=== PATIENT | female | born 1965 | race Caucasian/White ===

== ENCOUNTER → 2019-05-20 | Outpatient (CLI) | payer MEDICARE, SELFPAY | DX: Z12.31 Encounter for screening mammogram for malignant neoplasm of breast (principal) | CPT/HCPCS: 77067 ==

== ENCOUNTER 2019-07-07 07:59 | Outpatient (CLI) | payer MEDICARE, SELFPAY ==
--- NOTE | 2019-07-07 08:07 | MM_ITS ---
WS: [id number] RIGHT DIGITAL MAMMOGRAPHY WITH CAD CLINICAL INFORMATION: ABNORMAL MAMMOGRAM TECHNIQUE: 3 views of the right breast were obtained. FINDINGS: Scattered fibroglandular densities of the right breast. Again seen are the punctate clustered calcifi cations inner right breast. Spot magnification views demonstrate clusters of calcifications increase d since 2014. 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 Recommend 6 eusebio h follow-up right diagnostic mammogram and spot notification views. IMPRESSION: MM/[place] [id number] BI-RADS: 3-Probably Benign FOLLOW UP: 6 Month Follow-up
== END 2019-07-07 08:00 | disposition home or self-care (01) ==
LOC: RADSHAW 08:03
PROVIDERS: PCP Nurse Practitioner Family; Visit Provider Nurse Practitioner Family
DX: R92.8 Other abnormal and inconclusive findings on diagnostic imaging of breast (principal)
CPT/HCPCS: 77065

== ENCOUNTER 2020-02-23 09:53 | Outpatient (CLI) | payer MEDICARE, SELFPAY ==
--- NOTE | 2020-02-23 09:58 | MM_ITS ---
WS: [id number] Right breast diagnostic digital mammogram, 02/23/2020 Clinical Data: 6 MO F/U RT CALCIFICATIONS Comparison: 07/07/2019, 05/20/2019, 07/29/2013, 10/09/2011, 09/27/2011, 08/06/2000. Findings: The punctate clustered calcifications in the central portion of the right breast have not changed in number or configuration. Most likely these represent benign calcifications, probably a degenerating f ibroadenoma. MM/[place] [id number] Impression: 1. Benign calcification central right breast. 2. Return to annual screening mammograms. BIRADS: 2-Benign FOLLOW UP: 1 Year Follow-up The CAD cash checker was used.
== END 2020-02-23 09:54 | disposition home or self-care (01) ==
PROVIDERS: PCP Nurse Practitioner Family; Visit Provider Nurse Practitioner Family
DX: R92.1 Mammographic calcification found on diagnostic imaging of breast (principal)
CPT/HCPCS: 77065

== ENCOUNTER 2020-03-12 11:07 | Outpatient (CLI) | payer MEDICARE, SELFPAY ==
--- NOTE | 2020-03-12 11:15 | USCV_ITS ---
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 The following venous structures were evaluated: common femoral vein, profunda vein, proximal portion of the greater saphenous vein, superficial femoral vein, and the popliteal vein. In addition, the posterior tibial and peroneal trunk were evaluated. Serial compression, augmentation maneuvers, and spectral Doppler flow evaluation were performed. Also the Rt. LSV and Rt. Pop fossa were examined. Also the Rt post calf was examined. FINDINGS: No DVT seen in any vessel examined CONCLUSIONS No evidence of right lower extremity DVT. No evidence of left lower extremity DVT. CALLED NEG PRELIM TO RAMA AT [facility] AT 11:50 AM. Napoleon Baker MD (Electronically Signed) Final Date: 12 March 2020 16:29 S
== END 2020-03-12 11:08 | disposition home or self-care (01) ==
LOC: RAD 11:13
PROVIDERS: PCP Nurse Practitioner Family; Visit Provider Nurse Practitioner Family
DX: M79.661 Pain in right lower leg (principal); M79.89 Other specified soft tissue disorders
CPT/HCPCS: 93970

== ENCOUNTER 2021-02-25 09:49 | Outpatient (CLI) | payer MEDICARE, SELFPAY ==
--- NOTE | 2021-02-25 10:00 | MM_ITS ---
WS: [id number] BILATERAL SCREENING DIGITAL MAMMOGRAM WITH CAD HISTORY: Z12.39 - Encounter for other screening for malignant neoplasm. COMPARISON: 02/23/2020 and 05/20/2019 Bilateral CC and MLO views submitted. Computer aided detection analyzed. Breast composition: There are scattered areas of fibroglandular density. No suspicious masses, microc alcifications or architectural distortion. Benign calcifications in the central RIGHT breast. MM/[place] [id number] IMPRESSION: BI-RADS: 2-Benign FOLLOW UP: 1 Year Follow-up
== END 2021-02-25 09:50 | disposition home or self-care (01) ==
PROVIDERS: PCP Nurse Practitioner Family; Visit Provider Nurse Practitioner Women's Health
DX: Z12.31 Encounter for screening mammogram for malignant neoplasm of breast (principal)
CPT/HCPCS: 77067

== ENCOUNTER 2021-09-19 10:47 | Observation (INO) | payer MEDICARE, SELFPAY ==
[2021-09-19] VITALS (9 sets, daily range): BP systolic 121–153; BP diastolic 73–96; PULSE 53–99; RESP 15–18; TEMP 36.6–37.2; O2SAT 93–99; BMI 41.3; BMI 42.9
--- NOTE | 2021-09-19 10:59 | W.ED.ABDPA2 ---
HPI - Abdominal Pain General: Chief Complaint: Abdominal Pain Stated Complaint: ABD pain Time Seen by Provider: 09/19/21 10:59 History of Present Illness: Ms. Mejia is a 55-year-old lady with history of thyroid disorder, fibromyalgia, abnormal uterine bleeding who presents to the emergency department due to abdominal pain. Symptom onset was acute at approximately 6 days ago. She reports pain in the epigastric region that woke her up from sleep. Symptoms have persisted since that time though do wax and wane in intensity. She endorses burning gnawing epigastric pain associated with mild nausea and one episode of vomiting last night during an episode of severe pain. She denies associated changes in bowel movements or urination. Pain mildly migrates most recently to the right upper quadrant. Intensity of symptoms is moderate to severe. She has tried [id number] medications without significant relief. Does have a very remote history of similar type feeling when she was 17 and had an ulcer. No history of frequent GERD. No other specific changes in health, exacerbating, or alleviating factors identified. Onset (ago): day(s) Pain Consistency: constant Location: Epigastric and RUQ Severity: severe Quality: aching, sharp and burning Exacerbating factors: nothing Relieving factors: nothing Treatments prior to arrival: antacids and other Review of Systems General: Reports: 10 or more systems reviewed and unremarkable except in HPI and below PFSH ED PFSH: Medical History Abnormal uterine bleeding Fibromyalgia syndrome Hypothyroid Morbid obesity with BMI of 40.0-44.9, adult No pertinent past medical history Neg Hx: HTN, DM, DVT/PE PCP: Raquel Campo Surgical History Hx of arthroscopic knee surgery Left side Family History Grandmother Breast cancer Paternal great grandmother Family/Other Breast cancer Maternal great aunt Mother Hypertension Social History Smoking and tobacco status: current every day smoker cigarettes [ Other cigarette details: Started smoking at age 25; currently smoking 1/2 pack daily.] Alcohol intake: never Additional social history: Well balanced diet Physical Exam Const: COMMON NORMALS: alert GENERAL APPEARANCE: cooperative and well developed HENMT: COMMON NORMALS: normocephalic and atraumatic HEAD & SCALP: normocephalic and atraumatic Eye: COMMON NORMALS: conjunctivae normal CONJUNCTIVA: Yes conjunctivae normal SCLERA: sclerae normal Neck/C-Spine: COMMON NORMALS: supple GENERAL: Yes trachea midline Resp: COMMON NORMALS: clear to auscultation bilaterally EFFORT & INSPECTION: Yes able to speak in complete sentences AUSCULTATION: clear to auscultation bilaterally Cardio: COMMON NORMALS: regular rate and regular rhythm RATE: regular rate RHYTHM: regular rhythm GI: COMMON NORMALS: Soft to palpation PALPATION: Yes Soft to palpation, Yes Tenderness to palpation present (GI) (Epigastric, with some additional tenderness to percussion over the region), No Guarding due to palpation present (GI) and No Rigid due to palpation PERCUSSION: normal to percussion Extremity: GENERAL: Yes normal exam except as noted and No edema Neuro: COMMON NORMALS: moves all extremities SENSORIUM/ORIENTATION: Yes alert and No Orientation impaired Psych: COMMON NORMALS: mental status grossly normal and Normal thought process present THOUGHT PROCESS: Normal thought process present Course ED course: - Patient was seen and evaluated by me at bedside - Patient placed on cardiac monitors, IV access obtained - Initial evaluation notable for exam as above. EKG reviewed showing sinus rhythm with nonspecific ST segment abnormalities. No STEMI. - Labs and xrays personally interpreted by me -Symptom treatment ordered - Labs notable for mild leukocytosis, normal hemoglobin. Metabolic panel without acute derangement, no transaminitis or abnormality of liver enzymes. No urinary tract infection. - Given severity of symptoms and physical exam findings despite laboratory findings I do feel that imaging is necessary. Imaging notable for likely cholecystitis however due to filling defect in gallbladder neck there is recommendation for ultrasound. Ultrasound also consistent with cholecystitis - Upon serial reexamination after treatment the patient was mildly improved though she did require repeat doses of analgesia - Based on patient history, evaluation, and testing as interpreted the most likely cause of the patient's condition is acute cholecystitis - The results of ED evaluation were discussed with the patient including plan for admission due to requirement for level of care not available if discharged to prevent significant worsening/deterioration. - Admitting service was contacted and Dr Knight with the general surgery service agreed to admit the patient - Patient was admitted without further deterioration or significant events. Note: Click bubbles or prepopulated martinez in note writing are used for assistance with data collection and billing and are inherently more limited than narrative and other text portions of this note. Please use narrative for additional clinical history and defer to narrative/free test for any case of contradictory information. If information appears in only free text or click bubble it should be considered present or absent as reported. Please contact note property underwriter for clarifications of clinical information or contradictory information. MDM is a brief summary, contradictory or erroneous seeming information should be clarified and full note should be reviewed. Vital Signs: Vital signs: Vital Signs Temperature 97.9 F 09/20/21 16:52 Pulse Rate 81 09/20/21 16:52 Respiratory Rate 16 09/20/21 16:52 Blood Pressure 146/80 09/20/21 16:52 Pulse Oximetry 93 09/20/21 16:52 MDM - Abdominal Pain Medical Decision Making 55-year-old lady presenting with abdominal pain more in the epigastric region. Laboratory studies not significantly deranged. CT imaging notable for abnormal gallbladder. Ultrasound findings consistent with acute cholecystitis. Admitted to general surgery service for further management. Medical Records I reviewed the patient's medical records. Lab Data I reviewed the patient's lab results. : 09/20/21 02:44 09/20/21 02:44 Labs/Radiology: Radiology Impressions Abdomen/Pelvis CT 09/19/21 12:32 IMPRESSION: 1. Diffuse gallbladder wall thickening with enhancement and inflammatory stranding in the gallbladder fossa suspicious for acute cholecystitis. Recommend further evaluation with ultrasound. Suggestion of a masslike filling defect in the gallbladder neck measuring 4.0 cm may represent radiolucent gallstone. Gallbladder mass not excluded. 2. No intrahepatic biliary ductal dilatation. 3. Large benign cavernous hemangioma in the LEFT hepatic lobe measuring 6.2 x 4.4 cm increased in size compared to 2013 where it measured 4.4 x 3.2 CM. 4. Heterogeneously enhancing fibroid uterus. 5. Sigmoid diverticulosis. No evidence of acute diverticulitis. Notified Lalito Peterson MD at 09/19/2021 2:08 PM. Abdomen Ultrasound 09/19/21 13:59 IMPRESSION: Technically difficult examination 1. Hepatomegaly with diffuse fatty infiltration. 2. Cholelithiasis with marked diffuse gallbladder wall thickening and edema compatible with acute cholecystitis. No gallbladder mass. Dense gallbladder sludge and bile. 3. Largest gallstone measures 2.2 cm 4. Normal common bile duct. No intrahepatic biliary duct dilatation. 5. No hydronephrosis in RIGHT kidney. Laboratory Results WBC 10.5 10^3/uL (4.0-10.0) H 09/19/21 11:30 RBC 4.64 10^6/uL (4.1-5.3) 09/19/21 11:30 Hgb 14.4 g/dL (11.5-15.3) 09/19/21 11:30 Hct 44.2 % (37.0-47.0) 09/19/21 11:30 MCV 95.3 fl (81-99) 09/19/21 11:30 MCH 31.0 pg (28.0-34.0) 09/19/21 11:30 MCHC 32.6 g/dL (30.0-36.0) 09/19/21 11:30 RDW 13.7 % (12.1-15.1) 09/19/21 11:30 Plt Count 296 10^3/cmm (130-400) 09/19/21 11:30 MPV 9.9 fL (7.4-10.4) 09/19/21 11:30 Neut % (Auto) 73.0 % 09/19/21 11:30 Lymph % (Auto) 16.4 % 09/19/21 11:30 [place] % (Auto) 8.8 % 09/19/21 11:30 Eos % (Auto) 1.1 % 09/19/21 11:30 Baso % (Auto) 0.5 % 09/19/21 11:30 Neut # (Auto) 7.64 10^3/uL (1.8-7.7) 09/19/21 11:30 Lymph # (Auto) 1.7 10^3/uL (0.8-4.8) 09/19/21 11:30 [place] # (Auto) 0.9 10^3/uL (0.2-0.9) 09/19/21 11:30 Eos # (Auto) 0.1 10^3/uL (0.0-0.8) 09/19/21 11:30 Baso # (Auto) 0.1 10^3/uL (0.0-0.1) 09/19/21 11:30 Nucleated RBC % (auto) 0 % 09/19/21 11:30 Nucleated RBCs # 0.0 /100WBC 09/19/21 11:30 Sodium 138 mmol/L (136-145) 09/19/21 11:30 Potassium 3.9 mmol/L (3.5-5.1) 09/19/21 11:30 Chloride 101 mmol/L (98-107) 09/19/21 11:30 Carbon Dioxide 25 mmol/L (22-29) 09/19/21 11:30 Anion Gap 15.9 (5-19) 09/19/21 11:30 BUN 6 mg/dL (6-20) 09/19/21 11:30 Creatinine 0.6 mg/dL (0.5-0.9) 09/19/21 11:30 GFR Calculation 104.6 mL/min (90-130) 09/19/21 11:30 Glucose 98 mg/dL (65-115) 09/19/21 11:30 Calculated Osmolality 284 mOsm/kg (285-295) L 09/19/21 11:30 Lactate 0.8 mmol/L (0.5-2.2) 09/19/21 11:30 Calcium 8.8 mg/dL (8.5-10.5) 09/19/21 11:30 Total Bilirubin 0.4 mg/dL (0.15-1.2) 09/19/21 11:30 AST 9 U/L (0-32) 09/19/21 11:30 ALT 9 U/L (0-33) 09/19/21 11:30 Alkaline Phosphatase 95 IU/L (35-105) 09/19/21 11:30 Troponin T Baseline 6 ng/L (0-10) 09/19/21 11:30 Troponin T 120 Minute 6.00 ng/L (0-10) 09/19/21 13:10 Delta Troponin T 0 ABS# (0-10) 09/19/21 13:10 Total Protein 6.7 g/dL (6.6-8.7) 09/19/21 11:30 Albumin 4.0 g/dL (3.5-5.2) 09/19/21 11:30 Globulin 2.7 g/dL (1.3-4.6) 09/19/21 11:30 Lipase 18 U/L (13-60) 09/19/21 11:30 Urine Color Straw (Yellow) 09/19/21 14:48 Urine Appearance Clear (CLEAR) 09/19/21 14:48 Urine pH 5 (5-7) 09/19/21 14:48 Ur Specific [place] 1.005 (1.005-1.030) 09/19/21 14:48 Urine Protein Neg (Negative) 09/19/21 14:48 Urine Glucose (UA) Norm (Normal) 09/19/21 14:48 Urine Ketones Negative (Negative) 09/19/21 14:48 Urine Blood Neg (Negative) 09/19/21 14:48 Urine Nitrate Negative (Negative) 09/19/21 14:48 Urine Bilirubin Neg (Negative) 09/19/21 14:48 Urine Urobilinogen Norm mg/dL (Negative) 09/19/21 14:48 Ur Leukocyte Esterase Negative (Negative) 09/19/21 14:48 Discharge Plan Discharge Patient Disposition: Admitted As Inpatient Admit Provider: Ino Knight Clinical Impression: Cholecystitis Condition: Stable Discharge Diet: Low Fat Discharge Activity: Increase activity as tolerated Coding Level of Care Code ED Supervisor Network Control Operators for Chg Fwd Exam Comprehensive
--- NOTE | 2021-09-19 11:22 | ECG_ITS ---
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 Measurements Intervals [place] Rate: 83 P: -6 LA: 158 QRS: 23 QRSD: 96 T: 6 QT: 356 QTc: 421 Interpretive Statements SINUS RHYTHM INCOMPLETE RIGHT BUNDLE BRANCH BLOCK [90+ ms QRS DURATION, TERMINAL R IN V1/V2, 40+ ms S IN I/aVL/V4/V5/V6] No previous ECG available for comparison Electronically Signed On 09-19-2021 16:32:40 CDT by Nir Chris M.D. [id number]
[2021-09-19 11:41] LABS: Basophils # 0.1 10^3/uL (0.0-0.1); Basophils % 0.5 %; Eosinophils # 0.1 10^3/uL (0.0-0.8); Eosinophils % 1.1 %; Hematocrit 44.2 % (37.0-47.0); Hemoglobin 14.4 g/dL (11.5-15.3); Lymphocytes # 1.7 10^3/uL (0.8-4.8); Lymphocytes % 16.4 %; Mean Corpuscular HGB Conc 32.6 g/dL (30.0-36.0); Mean Corpuscular Volume 95.3 fl (81-99); Mean Platelet Volume 9.9 fL (7.4-10.4); Monocytes # 0.9 10^3/uL (0.2-0.9); Monocytes % 8.8 %; Neutrophils # 7.64 10^3/uL (1.8-7.7); Nucleated Red Blood Cells % 0 %; Platelet Count 296 10^3/cmm (130-400); Red Blood Count 4.64 10^6/uL (4.1-5.3); Red Cell Distribution Width 13.7 % (12.1-15.1); White Blood Count 10.5 10^3/uL (4.0-10.0)
[2021-09-19] MEDS: lidocaine 2% viscous 15 ML, aluminum-mag hydrox-simethicon 30 ML, sucralfate oral liq 1 GM PO (11:43)
[2021-09-19] MEDS: ondansetron 2 mg/ML SDV 2 mL 4 MG IVP (11:43)
[2021-09-19 12:10] LABS: Lactate (Lactic Acid level) 0.8 mmol/L (0.5-2.2)
[2021-09-19 12:11] LABS: Alanine Aminotransferase 9 U/L (0-33); Alkaline Phosphatase 95 IU/L (35-105); Anion Gap 15.9 (5-19); Aspartate Amino Transferase 9 U/L (0-32); Blood Urea Nitrogen 6 mg/dL (6-20); Calcium 8.8 mg/dL (8.5-10.5); Carbon Dioxide 25 mmol/L (22-29); Chloride 101 mmol/L (98-107); Globulin 2.7 g/dL (1.3-4.6); Glomerular Filtration Rate 104.6 mL/min (90-130); Glucose 98 mg/dL (65-115); Lipase 18 U/L (13-60); Osmolality Calculated 284 mOsm/kg (285-295); Potassium 3.9 mmol/L (3.5-5.1); Sodium 138 mmol/L (136-145); Total Bilirubin 0.4 mg/dL (0.15-1.2); Total Protein 6.7 g/dL (6.6-8.7); Troponin(5th) Baseline 6 ng/L (0-10)
--- NOTE | 2021-09-19 12:32 | CT_ITS ---
WS: [id number] CT ABDOMEN PELVIS TECHNIQUE: Contrast-enhanced CT of the abdomen and pelvis with coronal and sagittal reformatted image s. CLINICAL INFORMATION: epigastric and RUQ abd pain, n/v COMPARISON: CT 3 28,014 DLP: 1928.[address] scans at [facility] use at least one of these dose optimization techniques: automated e xposure control; mA and/or kV adjustment per patient size (includes targeted exams where dose is matc hed to clinical indication); or iterative reconstruction. FINDINGS: Diffuse fatty infiltration liver. Diffuse gallbladder wall thickening and enhancement with cholelithi asis. Diffuse inflammatory stranding and edema in the gallbladder fossa compatible with acute cholecy stitis. Suggestion of masslike filling defect in the gallbladder neck measuring 4.0 cm x 2.1 may repr esent radiolucent gallstone. Gallbladder mass not excluded. No intrahepatic biliary ductal dilatation . Normal visualized common bile duct at the head of the pancreas. Mild fatty atrophy of the pancreas. Normal portal vein and splenic vein. Normal spleen. Normal GE junction. Large benign cavernous uvaldo ioma measuring 6.2 x 4.4 cm was present in 2013 measuring 4.0 cm x 3.2 at that time. Adrenal glands a re normal. Normal renal parenchymal enhancement. No hydronephrosis. Small LEFT adrenal adenoma measuring 16 mm. Normal GE junction. Normal caliber abdominal aorta. Mild aortic calcification. Sigmoid diverticulosis. No evidence of acute diverticulitis. No evidence of hig h-grade small or large bowel obstruction. Bibasilar atelectasis. Celiac and SMA are patent. Tiny fat- containing umbilical hernia. Heterogeneous uterine enhancement with fibroid uterus. CT/CT abdomen pelvis w con* [id number] IMPRESSION: 1. Diffuse gallbladder wall thickening with enhancement and inflammatory stran ding in the gallbladder fossa suspicious for acute cholecystitis. Recommend fur ther evaluation with ultrasound. Suggestion of a masslike filling defect in the gallbladder neck measuring 4.0 cm may represent radiolucent gallstone. Gallbla dder mass not excluded. 2. No intrahepatic biliary ductal dilatation. 3. Large benign cavernous hemangioma in the LEFT hepatic lobe measuring 6.2 x 4.4 cm increased in size compared to 2014 where it measured 4.4 x 3.2 CM. 4. Heterogeneously enhancing fibroid uterus. 5. Sigmoid diverticulosis. No evidence of acute diverticulitis. Notified Lalito Peterson MD at 09/19/2021 2:08 PM.
[2021-09-19] MEDS: morphine 4 mg/mL SDV 1 mL IVP ×3 (12:42→19:58)
[2021-09-19] MEDS: sodium chloride 0.9% 1,000 ML 999 ML IV (12:42)
[2021-09-19] MEDS: iohexol 350 mg/mL 100 mL Btl IV (13:35)
--- NOTE | 2021-09-19 13:59 | US_ITS ---
WS: [id number] ULTRASOUND ABDOMEN LIMITED CLINICAL INFORMATION: gallbladder abnormal on CT COMPARISON: CT September 19, 2021 FINDINGS: Technically difficult exam Liver Size: Enlarged Craniocaudal length: 17.4 cm. Echogenicity: Coarse Surface nodularity: None. Mass (size and location): None. Bile ducts Intrahepatic ducts: Normal. Common bile duct diameter: 0.5 cm. Gallbladder Cholelithiasis with thickened gallbladder wall. Diffuse gallbladder wall edema. Gallstones: Present Gallbladder sludge: Present Gallbladder wall thickenin.3 mm Pericholecystic fluid: Present Pancreas Normal as visualized. Right kidney: Normal. Hydronephrosis: None. Size: 10.6 cm x 6.1 cm x 4.2 cm. Abdominal aorta and IVC Visualized portions are normal. Ascites: None. US/US abdomen limited [id number] IMPRESSION: Technically difficult examination 1. Hepatomegaly with diffuse fatty infiltration. 2. Cholelithiasis with marked diffuse gallbladder wall thickening and edema co mpatible with acute cholecystitis. No gallbladder mass. Dense gallbladder sludg e and bile. 3. Largest gallstone measures 2.2 cm 4. Normal common bile duct. No intrahepatic biliary duct dilatation. 5. No hydronephrosis in RIGHT kidney.
[2021-09-19 14:25] LABS: Troponin 5 2HR Delta 0 ABS# (0-10)
[2021-09-19 15:01] LABS: Add Urine Microscopic? NO; Charge for UA Resulting for Rev
[2021-09-19 15:14] LABS: Bilirubin Urine Neg (Negative); Blood Urine Neg (Negative); Glucose Urine UA Norm (Normal); Ketones Urine Negative (Negative); Leukocyte Esterase Urine Negative (Negative); Nitrate Urine Negative (Negative); Protein Urine Neg (Negative); Specific Gravity, Urine 1.005 (1.005-1.030); Urine Appearance Clear (CLEAR); Urine Color Straw (Yellow); Urobilinogen Urine Norm (Negative); pH Urine 5 (5-7)
[2021-09-19] MEDS: piperacillin-tazobactam 4.5 GM in sodium chloride 0.9% (plus) 50 ML IV (15:29)
[2021-09-19] MEDS: sodium chloride 0.9% 1,000 ML 125 ML IV ×2 (15:29→23:22)
--- NOTE | 2021-09-19 15:39 | P.HP_ITS ---
Providers/Chief Complaint Admitting Physician: Ino Knight MD Primary Care Provider: RADHA Thakur Chief Complaint: ABD pain History of Present Illness Ms. Nedra Mejia is a pleasant 55 year old female with history of morbid obesity weighing 265 pounds and a current BMI of 41.3, in addition to history of hypothyroidism, fibromyalgia, history of abnormal uterine bleeding and menopausal syndrome. Presents to the emergency department with worsening abdominal pain particularly in the upper abdomen that has been going on for the past 6 days or so, got worse and she describes it is more dull and nothing seems to make it better except the pain medications she received in the ER and has been referred to the back. Associated with nausea and vomiting but no fevers or chills. Patient reports that she did have history of gallbladder stones but nothing was done much about it in the past but generally speaking she does report history of fatty dyspepsia and she was told in the past based on clinical evaluation that she may have an ulcer and subsequently she came to the ER under this impression and it turned out after further work-up that showed leukocytosis and a CT scan of the abdomen and pelvis that did show; 1.? Diffuse gallbladder wall thickening with enhancement and inflammatory stranding in the gallbladder fossa suspicious for acute cholecystitis. Recommend further evaluation with ultrasound. Suggestion of a masslike filling defect in the gallbladder neck measuring 4.0 cm may represent radiolucent gallstone. Gallbladder mass not excluded. 2.? No intrahepatic biliary ductal dilatation. 3.? Large benign cavernous hemangioma in the LEFT hepatic lobe measuring 6.2 x 4.4 cm increased in size compared to 2014 where it measured 4.4 x 3.2 CM. 4.? Heterogeneously enhancing fibroid uterus. 5.? Sigmoid diverticulosis. No evidence of acute diverticulitis. An ultrasound of the liver and gallbladder was done and showed; 1.? Hepatomegaly with diffuse fatty infiltration. 2.? Cholelithiasis with marked diffuse gallbladder wall thickening and edema compatible with acute cholecystitis. No gallbladder mass. Dense gallbladder sludge and bile. 3.? Largest gallstone measures 2.2 cm 4.? Normal common bile duct. No intrahepatic biliary duct dilatation. 5.? No hydronephrosis in RIGHT kidney. General surgery was consulted for further evaluation and management. Patient was seen and evaluated in room #16 in the ER. Patient reports that she had left knee surgery and did not have any worsening bleeding or anesthesia complications except for postoperative nausea she is also current smoker about half pack a day for many years Review of Systems General: Reports: 10 or more systems reviewed and unremarkable except in HPI and below Medications/Allergies Home Medications Medication Instructions Recorded Confirmed Last Taken Type [id number]-pnxgoiwrvapze-spxiyfsl 250 2 tab PO Q6H PRN 06/06/19 09/19/21 Unknown History mg-250 mg-65 mg tablet (Excedrin Migraine) ibuprofen 200 mg capsule 600 mg PO Q6H PRN 06/06/19 09/19/21 Unknown History pregabalin 75 mg capsule (Lyrica) 75 mg PO BID@06/06/19 09/19/21 09/18/21 History venlafaxine 75 mg capsule,extended 75 mg PO BEDTIME@202910/21/19 09/19/21 09/18/21 History release 24 hr (Effexor XR) clobetasol 0.05 % topical ointment 1 applic TOPICAL BID 14 Days #45 g 09/12/21 09/19/21 Unknown Rx latanoprost 0.005 % eye drops 1 drp OPHTHALMIC (EYE) BEDTIME@202909/12/21 09/19/21 09/18/21 History amitriptyline 25 mg tablet 25 mg PO BEDTIME@202909/19/21 09/19/21 09/18/21 History estradiol 0.5 mg tablet 0.5 mg PO DAILY@82909/19/21 09/19/21 09/19/21 08:30 History estradiol 1 mg tablet 1 mg PO DAILY@82909/19/21 09/19/21 09/19/21 08:30 History hydrocodone 5 mg-acetaminophen 325 1 tab PO Q4H PRN 09/19/21 09/19/21 Unknown History mg tablet levothyroxine 112 mcg tablet See Rx Instructions .ROUTE .COMPLEX 09/19/21 09/19/21 09/18/21 History levothyroxine 125 mcg tablet See Rx Instructions .ROUTE .COMPLEX 09/19/21 09/19/21 09/19/21 History medroxyprogesterone 5 mg tablet 5 mg PO DAILY@82909/19/21 09/19/21 09/19/21 History Allergies Allergy/AdvReac Type Severity Reaction Status Date / Time topiramate [From Topamax] Allergy Mental Verified 09/19/21 16:46 status changes PFSH Acute PFSH: Medical History Abnormal uterine bleeding Fibromyalgia syndrome Hypothyroid Morbid obesity with BMI of 40.0-44.9, adult No pertinent past medical history Neg Hx: HTN, DM, DVT/PE PCP: Raquel Campo Surgical History Hx of arthroscopic knee surgery Left side Family History Grandmother Breast cancer Paternal great grandmother Family/Other Breast cancer Maternal great aunt Mother Hypertension Social History Smoking and tobacco status: current every day smoker cigarettes [ Other cigarette details: Started smoking at age 25; currently smoking 1/2 pack daily.] Alcohol intake: never Additional social history: Well balanced diet Vitals/I&O/Wt Last Vital Signs Temp 97.9 F 09/19/21 10:55 Pulse 83 09/19/21 13:04 Resp 17 09/19/21 14:14 BP 141/91 09/19/21 13:04 Pulse Ox 96 09/19/21 13:04 Weight last 48 hrs Weight 256 lb Physical Exam Const: COMMON NORMALS: no acute distress and patient oriented x3 GENERAL APPEARANCE: cooperative and other (Morbidly obese) ORIENTATION/CONSCIOUSNESS: Yes awake, Yes oriented to person, Yes oriented to place and Yes oriented to time HENMT: COMMON NORMALS: normocephalic HEAD & SCALP: normocephalic Eye: COMMON NORMALS: Equal, round and reactive pupils present and no scleral icterus PUPIL: Yes Equal, round and reactive pupils present Lymph: LYMPHATIC: no lymphadenopathy noted Chest: COMMONS NORMALS: normal inspection of the chest Resp: COMMON NORMALS: normal respiratory effort; negative for clear to auscultation bilaterally (Scattered rhonchi on the right hemithorax) AUSCULTATION: clear to auscultation bilaterally Cardio: COMMON NORMALS: S1 normal heart sound present and S2 normal heart so und present; negative for No murmurs present (Cardio) HEART SOUNDS: S1 normal heart sound present and S2 normal heart sound present GI: COMMON NORMALS: Soft to palpation; negative for No hepatosplenomegaly present INSPECTION: Yes normal to inspection PALPATION: Yes Soft to palpation, No Firmness to palpation present (GI), No Tenderness to palpation present (GI), No Guarding due to palpation present (GI), No Rigid due to palpation and No No hepatosplenomegaly present Neuro: COMMON NORMALS: patient oriented x3 SENSORIUM/ORIENTATION: Yes oriented to person, Yes oriented to place and Yes oriented to time Psych: COMMON NORMALS: mental status grossly normal Skin: COMMON NORMALS: no rashes or lesions noted GENERAL SKIN EXAM: no rashes or lesions noted Data : 09/20/21 02:44 09/20/21 02:44 A&P Assessment and plan (1) Acute cholecystitis due to biliary calculus: After thorough history physical examination and reviewing the chart and images with my personal interpretation I did discuss with the patient and her family the following options; 1-giving the fact that the patient has been complaining of abdominal pain over the 6 days, she did pass the safer window for intervention which is likely the first 48 to 72 hours from the index episode and now moving to the seventh day, will have a higher chance for biliary injury and conversion to open with gallbladder surgery. With particular consideration of the fatty liver component that can make her surgery potentially more challenging. 2-conservative measures in the form of broad-spectrum antimicrobial therapy with repeated physical examination appropriate hydration and future interval cholecystectomy in 6 weeks 3-I did also emphasized on the importance to consider a cholecystostomy tube giving the fact that the gallbladder has been distended and placement of a draining tube per IR can give the patient relief with the plan for interval cholecystectomy in 4 to 6 weeks Patient would like to think about her options and we will keep her in an observation status on IV antibiotics and IV fluid resuscitation with repeat labs in the morning. Patient can have clear liquid diet for now and will keep n.p.o. after midnight Status: Acute (2) Fatty liver: Education about the importance of low calorie and low-fat diet and if the patient agreed on the interval cholecystectomy we will plan to put her on a liquid protein diet for at least 10 days to downsize the volume of the liver Status: Chronic (3) Smoking greater than 10 pack years: Education about the importance of cessation of smoking Assurance and education All questions have been answered and all concerns have been addressed to patient's satisfaction. Status: Acute Attestations Medical Necessity Statement*: Observation status Time Spent in Patient Care: 16 - 35 minutes Coding Level of Care Code Acute Home Health Nurse Licensed Practical for [facility] Fwd Exam Comprehensive Diagnoses Acute cholecystitis due to biliary calculus K80.00 Fatty liver K76.0 Smoking greater than 10 pack years F17.210
[2021-09-19 17:43] LABS: Troponin 5 6HR Delta 0 ng/L (0-12)
[2021-09-19] MEDS: famotidine 20 mg/2 mL INJ IVP (19:57)
[2021-09-19] MEDS: piperacillin-tazobactam 3.375 GM in sodium chloride 0.9% (plus) 50 ML IV (23:22)
[2021-09-20] VITALS: BP 123/66; PULSE 105; RESP 16; TEMP 36.6; O2SAT 97
[2021-09-20] MEDS: ondansetron 2 mg/ML SDV 2 mL 4 MG IVP (03:09)
[2021-09-20 03:12] LABS: Basophils # 0.1 10^3/uL (0.0-0.1); Basophils % 0.7 %; Eosinophils # 0.1 10^3/uL (0.0-0.8); Eosinophils % 1.1 %; Hematocrit 40.1 % (37.0-47.0); Hemoglobin 12.9 g/dL (11.5-15.3); Lymphocytes # 1.4 10^3/uL (0.8-4.8); Lymphocytes % 16.6 %; Mean Corpuscular HGB Conc 32.2 g/dL (30.0-36.0); Mean Corpuscular Hemoglobin 31.3 pg (28.0-34.0); Mean Corpuscular Volume 97.3 fl (81-99); Mean Platelet Volume 10.2 fL (7.4-10.4); Monocytes # 0.8 10^3/uL (0.2-0.9); Monocytes % 9.7 %; Neutrophils # 5.82 10^3/uL (1.8-7.7); Neutrophils % 71.7 %; Nucleated Red Blood Cells % 0 %; Platelet Count 283 10^3/cmm (130-400); Red Blood Count 4.12 10^6/uL (4.1-5.3); Red Cell Distribution Width 13.8 % (12.1-15.1); White Blood Count 8.1 10^3/uL (4.0-10.0)
[2021-09-20] MEDS: acetaminophen 325 mg Tablet 650 MG PO ×2 (03:23→12:10)
--- NOTE | 2021-09-20 03:28 | PC.NURSE ---
Patient has been complaining of a headache since receiving the morphine. This nurse asked the patient if she needed anything for it and I could call the doctor. The patient did not feel as though she needed something enough to wake the doctor for. Patient continued to complain of a headache increasing more. Patient stated when the weather gets like this, stormy and rainy, I tend to get headaches like this. This nurse educated the patient that rebound headaches is a side effect of morphine. This nurse asked the patient if she would like to try some ice on her head and neck to alleviate the pain. After having ice applied for about a hour, patient still felt no relief and stated her headache was pretty severe at this point and was beginning to make her nauseated. Zofran was administered and Dr. Knight was called. Tylenol was ordered and administered.
[2021-09-20 03:32] LABS: INR 1.08 (0.8-1.2); Partial Thromboplastin Time 35.5 SECONDS (23.9-36.7)
[2021-09-20 03:38] LABS: Alanine Aminotransferase 30 U/L (0-33); Albumin Level 3.1 g/dL (3.5-5.2); Alkaline Phosphatase 140 IU/L (35-105); Anion Gap 15.7 (5-19); Aspartate Amino Transferase 28 U/L (0-32); Blood Urea Nitrogen 6 mg/dL (6-20); Calcium 8.2 mg/dL (8.5-10.5); Carbon Dioxide 22 mmol/L (22-29); Chloride 104 mmol/L (98-107); Globulin 3.4 g/dL (1.3-4.6); Glomerular Filtration Rate 104.6 mL/min (90-130); Glucose 94 mg/dL (65-115); Osmolality Calculated 283 mOsm/kg (285-295); Potassium 3.7 mmol/L (3.5-5.1); Sodium 138 mmol/L (136-145); Total Bilirubin 0.6 mg/dL (0.15-1.2); Total Protein 6.5 g/dL (6.6-8.7)
[2021-09-20 04:00] VITALS: BP 118/79; PULSE 77; RESP 18; TEMP 36.6; O2SAT 91
[2021-09-20] MEDS: piperacillin-tazobactam 3.375 GM in sodium chloride 0.9% (plus) 50 ML IV ×2 (06:30→14:13)
[2021-09-20] MEDS: HYDROcodone-acetaminophen 5-325 mg Tablet 1 TAB PO (06:33)
[2021-09-20] MEDS: sodium chloride 0.9% 1,000 ML 125 ML IV (07:05)
[2021-09-20] MEDS: heparin 5,000 unit/mL INJ 1 mL 5000 UNIT SUBCUT (07:05)
[2021-09-20 07:20] VITALS: BP 122/72; PULSE 80; RESP 17; TEMP 36.9; O2SAT 92
--- NOTE | 2021-09-20 08:30 | PC.NURSE ---
Dr. Knight called about restarting home medications. Was told that he will look at her medications after he is out of a procedure.
[2021-09-20] MEDS: famotidine 20 mg/2 mL INJ IVP (08:32)
--- NOTE | 2021-09-20 10:12 | PM.SDS ---
Short Stay Summary Providers Date of Admit/Discharge: 09/20/21 Attending Provider: Ino Knight MD Primary Care Provider: RADHA Thakur Chief Complaint: ABD pain HPI History of Present Illness Ms. Nedra Mejia is a pleasant 55 year old female with history of morbid obesity weighing 265 pounds and a current BMI of 41.3, in addition to history of hypothyroidism, fibromyalgia, history of abnormal uterine bleeding and menopausal syndrome.? Presents to the emergency department with worsening abdominal pain particularly in the upper abdomen that has been going on for the past 6 days or so, got worse and she describes it is more dull and nothing seems to make it better except the pain medications she received in the ER and has been referred to the back.? Associated with nausea and vomiting but no fevers or chills.? Patient reports that she did have history of gallbladder stones but nothing was done much about it in the past but generally speaking she does report history of fatty dyspepsia and she was told in the past based on clinical evaluation that she may have an ulcer and subsequently she came to the ER under this impression and it turned out after further work-up that showed leukocytosis and a CT scan of the abdomen and pelvis that did show; 1.? Diffuse gallbladder wall thickening with enhancement and inflammatory stranding in the gallbladder fossa suspicious for acute cholecystitis. Recommend further evaluation with ultrasound. Suggestion of a masslike filling defect in the gallbladder neck measuring 4.0 cm may represent radiolucent gallstone. Gallbladder mass not excluded. 2.? No intrahepatic biliary ductal dilatation. 3.? Large benign cavernous hemangioma in the LEFT hepatic lobe measuring 6.2 x 4.4 cm increased in size compared to 2014 where it measured 4.4 x 3.2 CM. 4.? Heterogeneously enhancing fibroid uterus. 5.? Sigmoid diverticulosis. No evidence of acute diverticulitis. An ultrasound of the liver and gallbladder was done and showed; 1.? Hepatomegaly with diffuse fatty infiltration. 2.? Cholelithiasis with marked diffuse gallbladder wall thickening and edema compatible with acute cholecystitis. No gallbladder mass. Dense gallbladder sludge and bile. 3.? Largest gallstone measures 2.2 cm 4.? Normal common bile duct. No intrahepatic biliary duct dilatation. 5.? No hydronephrosis in RIGHT kidney. General surgery was consulted for further evaluation and management.? Patient was seen and evaluated in room #16 in the ER. Patient reports that she had left knee surgery and did not have any worsening bleeding or anesthesia complications except for postoperative nausea she is also current smoker about half pack a day for many years. Review of Systems General: Reports: 10 or more systems reviewed and unremarkable except in HPI and below Home Meds/Allergies Home Medications and Allergies Home Medications Medication Instructions Recorded Confirmed Type [id number]-rvptfbzsdevae-ndtqsnzv 250 2 tab PO Q6H PRN 06/06/19 09/19/21 History mg-250 mg-65 mg tablet (Excedrin Migraine) ibuprofen 200 mg capsule 600 mg PO Q6H PRN 06/06/19 09/19/21 History pregabalin 75 mg capsule (Lyrica) 75 mg PO BID@06/06/19 09/19/21 History venlafaxine 75 mg capsule,extended 75 mg PO BEDTIME@202910/21/19 09/19/21 History release 24 hr (Effexor XR) latanoprost 0.005 % eye drops 1 drp OPHTHALMIC (EYE) BEDTIME@202909/12/21 09/19/21 History amitriptyline 25 mg tablet 25 mg PO BEDTIME@202909/19/21 09/19/21 History estradiol 0.5 mg tablet 0.5 mg PO DAILY@82909/19/21 09/19/21 History estradiol 1 mg tablet 1 mg PO DAILY@82909/19/21 09/19/21 History hydrocodone 5 mg-acetaminophen 325 1 tab PO Q4H PRN 09/19/21 09/19/21 History mg tablet levothyroxine 112 mcg tablet See Rx Instructions .ROUTE .COMPLEX 09/19/21 09/19/21 History levothyroxine 125 mcg tablet See Rx Instructions .ROUTE .COMPLEX 09/19/21 09/19/21 History medroxyprogesterone 5 mg tablet 5 mg PO DAILY@82909/19/21 09/19/21 History Allergies Allergy/AdvReac Type Severity Reaction Status Date / Time topiramate [From Topamax] Allergy Mental Verified 09/19/21 16:46 status changes PFSH Acute PFSH: Medical History Abnormal uterine bleeding Fibromyalgia syndrome Hypothyroid Morbid obesity with BMI of 40.0-44.9, adult No pertinent past medical history Neg Hx: HTN, DM, DVT/PE PCP: Raquel Campo Surgical History Hx of arthroscopic knee surgery Left side Family History Grandmother Breast cancer Paternal great grandmother Family/Other Breast cancer Maternal great aunt Mother Hypertension Social History Smoking and tobacco status: current every day smoker cigarettes [ Other cigarette details: Started smoking at age 25; currently smoking 1/2 pack daily.] Alcohol intake: never Additional social history: Well balanced diet Vitals/I&O/Wt Last Vital Signs Temp 98.5 F 09/20/21 07:20 Pulse 80 09/20/21 07:20 Resp 17 09/20/21 07:20 BP 122/72 09/20/21 07:20 Pulse Ox 92 09/20/21 07:20 09/19/21 09/20/21 09/20/21 22:59 06:59 14:59 Intake Total 1050 / 1050 1515.417 / 2565.417 964.583 / 964.583 Output Total 1450 / 1450 Balance 1050 / 1050 65.417 / 1115.417 964.583 / 964.583 Weight last 48 hrs Weight 265 lb 12.8 oz Weight 256 lb Physical Exam Narrative: Patient is conscious alert oriented X3 No apparent distress BMI 43 Head and neck examination PERRLA no masses no cervical lymphadenopathy no jaundice Abdomen nontender nondistended soft no organomegaly guarding or rigidity/no signs of peritonitis Morbidly obese Hospital Course Hospital Course This is a pleasant 55 years old female patient with history of morbid obesity developed acute onset of abdominal pain particularly in the epigastrium and slightly towards the right upper quadrant and was diagnosed with acute calculus cholecystitis yet in the interim she does have a increase in the left lobe hemangioma that could be contributing factor of her epigastric pain as well. Patient was admitted on my service for observation and seems to be responding well to antimicrobial therapy yet she did have increase in the alk phos. surgery option was discussed with the patient he had given the fact that the patient has been having symptoms for the past 6 days the surgical intervention was guarded due to the higher potential risk of biliary injury and conversion to open. Patient denies any fevers chills nausea or vomiting and has been tolerating p.o. intake and an adequate urine output. Patient was given different options of management and she did not show interest in the cholecystostomy tube and subsequently the patient elected to go with parenteral antimicrobial therapy and showed much interest to go home today on oral antibiotics as she does not want to spend at least 1 more night in the hospital. No evidence of leukocytosis or fevers or tachycardia. He had slight elevation of alk phos and this knowledge has been shared with the patient and the daughter to be aware of the trending of the LFTs. SSS Data Data Completed and Pending: Completed Studies During Hospitalization Category Date Time Status CT abdomen pelvis w con* [id number] Urge nt Cat Scan 09/19/21 12:32 Completed US abdomen limite d [id number] Stat Ultrasound 09/19/21 13:59 Completed Diagnoses at Discharge Discharge Diagnosis (1) Acute cholecystitis due to biliary calculus: Details from hospital stay: Plan to discharge patient oral antimicrobial therapy(per patient's request as she is not interested to stay in the hospital) for 10 days and follow-up with me in the office in 2 weeks and proceed with interval cholecystectomy in 4 to 6 weeks. 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 Image guided. Also emphasis on weight reduction and cessation of smoking and particularly education regarding the growing left hepatic lobe hemangioma that would require potential hepatobiliary consultation down the road. Avoid any rough contact to avoid potential bleeding from the hemangioma. Specific education was given about the importance to refrain from unhealthy and greasy diet Status: Acute (2) Fatty liver: Details from hospital stay: Low-fat and low calorie diet Emphasis on weight reduction Status: Chronic (3) Smoking greater than 10 pack years: Details from hospital stay: Education about the importance for cessation of smoking Status: Acute (4) Liver hemangioma: Details from hospital stay: Patient likely would benefit from hepatobiliary surgery evaluation to see if there is a potential need for embolization of the hemangioma as it is getting bigger. Status: Chronic Discharge Plan Discharge Patient Disposition: Home Condition: Stable Prescriptions: New Protonix 40 mg tablet,delayed release (DR/EC) 40 mg PO DAILY 30 Days Qty: 30 3RF Augmentin XR 1,000-62.5 mg tablet extended release 12 hr 1 tab PO Q12H 10 Days Qty: 20 0RF Continued venlafaxine [Effexor XR] 75 mg capsule,extended release 24hr 75 mg PO BEDTIME@2029 0RF latanoprost 0.005 % drops 1 drp ophthalmic (eye) BEDTIME@2029 0RF clobetasol 0.05 % ointment 1 applic topical BID 14 Days Qty: 45 1RF Rx Instructions: Apply to affected area no more than 2 weeks per month. not for face or skin folds pregabalin [Lyrica] 75 mg capsule 75 mg PO BID@ 0RF Excedrin Migraine 250-250-65 mg tablet 2 tab PO Q6H PRN (Reason: Migraine Headache) 0RF ibuprofen 200 mg capsule 600 mg PO Q6H PRN (Reason: Pain) 0RF hydrocodone-acetaminophen 5-325 mg tablet 1 tab PO Q4H PRN (Reason: Pain) 0RF amitriptyline 25 mg tablet 25 mg PO BEDTIME@2029 0RF levothyroxine 125 mcg tablet See Rx Instructions .ROUTE .COMPLEX 0RF Rx Instructions: 125mcg po daily on sunday through sunday @07:00 levothyroxine 112 mcg tablet See Rx Instructions .ROUTE .COMPLEX 0RF Rx Instructions: 112mcg po daily on sun and sun medroxyprogesterone 5 mg tablet 5 mg PO DAILY@829 0RF Rx Instructions: take in conjunction with estradiol estradiol 1 mg tablet 1 mg PO DAILY@829 0RF Rx Instructions: take with estradiol 0.5mg to total 1.5mg daily; take in conjunction with provera estradiol 0.5 mg tablet 0.5 mg PO DAILY@829 0RF Rx Instructions: take with estradiol 1mg to total 1.5mg daily; take in conjunction with provera Discharge Orders: Discharge Order (Routine); Ordered 09/20/21 Ordered By: Ino Knight Referrals: Raquel Campo FNP [Primary Care Provider] - 09/27/21 4:00 pm Ino Knight MD [Physician] - 09/29/21 1:00 pm Discharge Diet: Low Fat Discharge Activity: Increase activity as tolerated Patient Instructions: Amoxicillin/Clavulanate Potassium (By mouth), Pantoprazole (By mouth), Cholecystitis (ED), Low Fat Diet (DC), Opioid Safety Attestations Medical Necessity Statement*: Observation status conservative measures for acute calculus cholecystitis Time Spent in Patient Care*: greater than 30 min Quality Metrics Clinical Quality Measures: [ No reported AMI, CVA or VTE this stay] Coding Level of Care Code Acute Plc Controls Engineer for g Fwd Diagnoses Acute cholecystitis due to biliary calculus K80.00 Fatty liver K76.0 Smoking greater than 10 pack years F17.210 Liver hemangioma D18.03
[2021-09-20 12:00] VITALS: BP 135/79; PULSE 80; RESP 17; TEMP 36.4; O2SAT 96
[2021-09-20 15:27] VITALS: BP 146/80; PULSE 81; RESP 16; TEMP 36.6; O2SAT 93
--- NOTE | 2021-09-20 16:48 | PC.NURSE ---
patient verbalized understanding of discharge instructions, home medications, low fat diet and follow up appointments. Afternoon dose of iv antibiotics completed prior to discharge.
[2021-09-20 16:52] VITALS: BP 146/80; PULSE 81; RESP 16; TEMP 36.6; O2SAT 93
== END 2021-09-20 16:52 | disposition home or self-care (01) ==
LOC: ER 11:10 → MEDSURG 15:33
PROVIDERS: Admitting Provider Surgery; Emergency Provider Emergency Medicine; PCP Nurse Practitioner Family; Visit Provider Surgery
DX: K80.00 Calculus of gallbladder with acute cholecystitis without obstruction (principal); K76.0 Fatty (change of) liver, not elsewhere classified; F17.210 Nicotine dependence, cigarettes, uncomplicated; D18.03 Hemangioma of intra-abdominal structures; E66.01 Morbid (severe) obesity due to excess calories; Z68.41 Body mass index [BMI] 40.0-44.9, adult; Z79.82 Long term (current) use of aspirin; M79.7 Fibromyalgia; Z82.49 Family history of ischemic heart disease and other diseases of the circulatory system
CPT/HCPCS: 36415; 74177; 76705; 80053; 81003; 83605; 83690; 84484; 85025; 85610; 85730; 93005; 96361; 96365; 96372; 96375; 96376; 99285; G0378; J1644; J2270; J2405; J2543; J3490; J7030; Q9967

== ENCOUNTER 2022-02-27 14:11 | Outpatient (CLI) | payer MEDICARE, SELFPAY ==
--- NOTE | 2022-02-27 14:30 | XR_ITS ---
WS: [id number] SCREENING DEXA SCAN [facility] CLINICAL INFORMATION: POSTMENOPAUSAL COMPARISON: None. FINDINGS: The L1-L4 bone mineral density measures 1.262 g/cm2. This corresponds to a T score score of 0.7 and Z score of 0.3. Left femoral neck bone mineral density measures 1.079 g/cm2. This corresponds to a T score of 0.6 and Z score of 0.3. Right femoral neck bone mineral density measures 1.204 g/cm2. This corresponds to a T score 1.6of and Z score of 1.3. Mean femoral neck bone mineral density measures 1.141 g/cm2. This corresponds to a T score of 1.1 and Z score of 0.8. XR/XR DEXA axial skeleton* [id number] IMPRESSION: Normal bone mineralization. Patient's FRAX calculated 10 year probability for major osteoporotic fracture i s 7.9 % and osteoporotic hip fracture is 0.2%.
--- NOTE | 2022-02-27 14:30 | MM_ITS ---
WS: [id number] BILATERAL 3D TOMOSYNTHESIS DIGITAL SCREENING MAMMOGRAPHY WITH CAD CLINICAL INFORMATION: SCREENING HISTORY: Screening mammogram. LEFT breast pain and soreness COMPARISON: February 25, 2021 TECHNIQUE: Bilateral CC and MLO views. FINDINGS: Scattered fibroglandular densities bilaterally. No suspicious focal mass, asymmetry, calcifications, or architectural distortion. No evidence of malignancy. Stable clustered calcifications RIGHT breast. MM/[place] [id number] IMPRESSION: BI-RADS: 2-Benign FOLLOW UP: 1 Year Follow-up Recommend return to annual screening mammography.
== END 2022-02-27 14:12 | disposition home or self-care (01) ==
LOC: RAD 14:12
PROVIDERS: PCP Nurse Practitioner Family; Visit Provider Nurse Practitioner Family
DX: Z12.31 Encounter for screening mammogram for malignant neoplasm of breast (principal); Z78.0 Asymptomatic menopausal state
CPT/HCPCS: 77063; 77067; 77080

== ENCOUNTER → 2022-03-03 11:28 | Outpatient (BNVA) | payer MEDICARE, SELFPAY | PROVIDERS: PCP Nurse Practitioner Family; Visit Provider Nurse Practitioner Women's Health | DX: Z01.419 Encounter for gynecological examination (general) (routine) without abnormal findings (principal); N95.1 Menopausal and female climacteric states; D68.51 Activated protein C resistance | CPT/HCPCS: 87624 ==

== ENCOUNTER 2022-04-10 08:02 | Oncology outpatient (recurring) (ONCR) | payer MEDICARE, SELFPAY | END 2022-04-19 23:59 | disposition home or self-care (01) | LOC: ONCMED 08:03 | PROVIDERS: PCP Nurse Practitioner Family; Visit Provider Internal Medicine Medical Oncology | DX: D68.51 Activated protein C resistance (principal); Z86.718 Personal history of other venous thrombosis and embolism; Z79.899 Other long term (current) drug therapy; F17.210 Nicotine dependence, cigarettes, uncomplicated | CPT/HCPCS: 99204 ==

== ENCOUNTER 2023-03-09 11:41 | Outpatient (CLI) | payer MEDICARE, SELFPAY ==
--- NOTE | 2023-03-09 11:48 | MM_ITS ---
WS: [id number] BILATERAL 3D TOMOSYNTHESIS DIGITAL SCREENING MAMMOGRAPHY WITH CAD CLINICAL INFORMATION: SCREENING HISTORY: Screening mammogram. No current complaints. COMPARISON: 2021 TECHNIQUE: Bilateral CC and MLO views. FINDINGS: Scattered fibroglandular densities bilaterally. No suspicious focal mass, asymmetry, calcifications, or architectural distortion. No evidence of malignancy. Stable clustered punctate calcifications RIGH T breast. Incidental punctate calcifications bilaterally. IMPRESSION: MM/[place] [id number] BI-RADS: 2-Benign FOLLOW UP: 1 Year Follow-up Recommend return to annual screening mammography.
== END 2023-03-09 11:42 | disposition home or self-care (01) ==
PROVIDERS: PCP Nurse Practitioner Family; Visit Provider Nurse Practitioner Family
DX: Z12.31 Encounter for screening mammogram for malignant neoplasm of breast (principal)
CPT/HCPCS: 77063; 77067

== ENCOUNTER → 2023-07-13 11:57 | Outpatient (BNVA) | payer BC, SELFPAY | PROVIDERS: PCP Nurse Practitioner Family; Visit Provider Nurse Practitioner Women's Health | DX: N95.1 Menopausal and female climacteric states (principal) | CPT/HCPCS: 82670; 83001 ==

== ENCOUNTER → 2023-08-06 12:15 | Outpatient (BNVA) | payer BC, SELFPAY | PROVIDERS: PCP Nurse Practitioner Family; Visit Provider Nurse Practitioner Women's Health | DX: D25.9 Leiomyoma of uterus, unspecified (principal) | CPT/HCPCS: 76830 ==

== ENCOUNTER → 2023-12-28 09:17 | Outpatient (BNVA) | payer BC, SELFPAY | PROVIDERS: PCP Nurse Practitioner Family; Visit Provider Student in an Organized Health Care Education/Training Program | DX: M25.562 Pain in left knee (principal); M17.12 Unilateral primary osteoarthritis, left knee | CPT/HCPCS: 73560; 73565 ==

== ENCOUNTER → 2024-01-15 09:29 | Outpatient (BNVA) | payer BC, SELFPAY | PROVIDERS: PCP Nurse Practitioner Family; Visit Provider Nurse Practitioner Women's Health | DX: R10.2 Pelvic and perineal pain (principal); D25.2 Subserosal leiomyoma of uterus | CPT/HCPCS: 76830 ==

== ENCOUNTER 2024-03-20 10:23 | Outpatient (CLI) | payer BC, SELFPAY ==
--- NOTE | 2024-03-20 10:28 | MM_ITS ---
WS: [id number] Bilateral screening 3D tomosynthesis digital mammogram, 03/20/2024 10:35 AM Clinical Data: SCREENING Comparison: 03/09/2023, 02/27/2022, 02/25/2021, 02/23/2020, 07/07/2019, 05/20/2019, 07/29/2013, 10/09/2011 , 09/27/2011. Findings: No spiculated masses or clustered calcifications are seen. There are no secondary signs of carcinoma . MM/MM scr BI tomosynthesis [id number] Impression: Negative bilateral mammogram unchanged. Recommend annual screening mammograms. BIRADS: 1 - Negative. FOLLOW UP: 1 Year Follow-up DENSITY: The breasts are almost entirely fatty. The CAD electric organ assembler and checker was used
== END 2024-03-20 10:24 | disposition home or self-care (01) ==
LOC: RAD 10:23
PROVIDERS: PCP Nurse Practitioner Family; Visit Provider Nurse Practitioner Family
DX: Z12.31 Encounter for screening mammogram for malignant neoplasm of breast (principal)
CPT/HCPCS: 77063; 77067

== ENCOUNTER 2024-07-14 10:42 | Outpatient (CLI) | payer OTHER, SELFPAY | END 2024-07-14 10:43 | disposition home or self-care (01) | LOC: SLEEP 07-15 10:44 | PROVIDERS: PCP Nurse Practitioner Family; Visit Provider Nurse Practitioner Family | DX: G47.33 Obstructive sleep apnea (adult) (pediatric) (principal); G47.36 Sleep related hypoventilation in conditions classified elsewhere | CPT/HCPCS: G0399 ==

== ENCOUNTER 2024-07-21 14:56 | Outpatient (CLI) | payer OTHER, SELFPAY ==
--- NOTE | 2024-07-21 15:15 | MR_ITS ---
WS: [id number] MRI LEFT KNEE NONCONTRAST TECHNIQUE: Axial PD, coronal PD fat sat, coronal PD, sagittal PD, and sagittal PD fat-sat images obtained. CLINICAL INFORMATION: left knee pain/djd COMPARISON: None. FINDINGS: Postoperative changes fixation LEFT medial femoral condyle. Associated susceptibility artifact degrades some images. Distal quadriceps and patella tendons are intact. Moderate to advanced tricompartment arthritis. ACL and PCL appear intact. Advanced chondromalacia patella with subchondral edema. Hypert rophic patella. Normal lateral meniscus. Chronic thinning of the medial meniscus with blunting of the medial meniscus at the meniscal root with blunting of the anterior horn. Medial and lateral collateral ligaments appear intact. Normal popliteus. Normal popliteal fossa. MR/MR knee LT wo con* [id number] IMPRESSION: 1. Advanced tricompartment arthritis. 2. 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 3. Small suprapatellar effusion. 4. Blunting with tear of the anterior horn medial meniscus. Chronic thinning o f the medial meniscus. 5. Postoperative changes hardware fixation medial femoral condyle degrades tess e images Outbridge grading: grade IV: full-thickness cartilage loss with underlying bone reactive changes
== END 2024-07-21 14:57 | disposition home or self-care (01) ==
PROVIDERS: PCP Nurse Practitioner Family; Visit Provider Student in an Organized Health Care Education/Training Program
DX: M17.12 Unilateral primary osteoarthritis, left knee (principal); M22.42 Chondromalacia patellae, left knee; S83.242A Other tear of medial meniscus, current injury, left knee, initial encounter; X58.XXXA Exposure to other specified factors, initial encounter; R93.6 Abnormal findings on diagnostic imaging of limbs; Z98.890 Other specified postprocedural states
CPT/HCPCS: 73721

== ENCOUNTER 2024-11-13 15:42 | Outpatient (CLI) | payer MEDICARE, SELFPAY ==
--- NOTE | 2024-11-13 15:44 | CT_ITS ---
WS: [id number] CT chest wo con [id number] HISTORY: SUBACUTE COUGH TECHNIQUE: Axial imaging performed through the thorax. Coronal and sagittal reformats are submitted. All CT scans at [facility] use at least one of these dose optimization techniques: automated exposure control; mA and/or kV adjustment per patient size (includes targeted exams where dose is matched to clinical indication); or iterative reconstruction. CONTRAST: None DLP: 626.34 mGy.cm COMPARISON: CT 03/01/2011, 08/15/2013, 09/19/2021. Lungs and central airway: Well aerated lungs. No dense consolidation or mass. 3 mm subsolid, subpleural opacification along the RIGHT minor fissure. Additional 3 mm subpleural nodule RIGHT middle lobe. Peripheral interstitial airways are very slightly prominent which is probably related to smoking. Pleura: Normal. No pleural effusion. Heart and pericardium: Normal size heart with no pericardial effusion. Mediastinum and kenn: No mediastinum or hilar adenopathy. Vessels: Mild atherosclerosis aorta. No aneurysm. Normal size pulmonary artery. Chest wall and lower neck: Calcified LEFT thyroid nodule 1.6 cm. Upper abdomen: Prior cholecystectomy. Large low-attenuation mass in the lateral segment LEFT lobe of the liver measures 6.0 x 7.8 x 9.1 cm. Hemangioma has been previously described in this location on prior CTs. Hemangioma continues to increase in size since 2010. No adrenal mass. Osseous structures: No destructive process. CT/CT chest wo con [id number] IMPRESSION: 1. No pneumonia or pneumothorax. 2. Mild interstitial thickening probably related to smoking. 3. No mediastinal or hilar adenopathy. 4. Subpleural micronodules along the RIGHT minor fissure and RIGHT middle lobe . 5. Prior cholecystectomy. 6. Large mass lateral segment LEFT lobe of the liver measures 6.0 x 7.8 x 9.1 cm. Patient has a known hepatic hemangioma which is slowly increasing in size s laura 2010.
== END 2024-11-13 15:43 | disposition home or self-care (01) ==
LOC: RAD 15:43
PROVIDERS: PCP Nurse Practitioner Family; Visit Provider Internal Medicine
DX: R05.2 Subacute cough (principal); R91.8 Other nonspecific abnormal finding of lung field; Z90.49 Acquired absence of other specified parts of digestive tract; I70.0 Atherosclerosis of aorta; E04.1 Nontoxic single thyroid nodule; D18.09 Hemangioma of other sites
CPT/HCPCS: 71250

== ENCOUNTER 2025-02-13 10:41 | Outpatient (CLI) | payer MEDICARE, SELFPAY ==
--- NOTE | 2025-02-13 10:52 | MR_ITS ---
WS: [id number] MRI ABDOMEN WITH AND WITHOUT CONTRAST. COMPARISON: CT chest 07/16/2024, CT 09/19/2021, CT 08/15/2013, 03/01/2011 Multiplanar, multisequence imaging is performed with and without contrast. MultiHance 20 Large, well-circumscribed T2 hyperintense mass centered in the lateral segment LEFT lobe of the liver measures 7.6 x 4.9 x 10.3 cm. Mass is causing mild bulging of the liver cortex. Mass does extend to about the lesser curvature of the stomach with displacement. There is no adjacent edema. No additional similar masses are noted within the liver. On postcontrast imaging there is peripheral nodular enhancement similar to the blood pool. Mass continues to fill in over time. Mass incompletely fills in at approximately 5 minutes post contrast injection. This mass is most consistent with a cavernous hemangioma. This mass has been present since at least 2010 and slowly increasing in size. No adjacent hemorrhage is identified. Normal size liver with mild hepatic steatosis. Portal vein is normal. Gallbladder is identified and could be contracted. Patient did not provide a history of a cholecystectomy. Common bile duct is normal. Normal pancreas and spleen spleen. Well-circumscribed LEFT adrenal mass measures 10 x [address] able since 09/19/2021. Normal RIGHT adrenal gland. Kidneys are normal size with no obstruction, solid or cystic mass. No ascites or adenopathy. MR/MR abdomen wo/w con* [id number] IMPRESSION: 1. T2 hyperintense mass lateral segment LEFT lobe of the liver measures 7.6 x 4.9 x 10.3 cm. This mass has been present since 2010 and slowly increasing over time consistent with a hemangioma. Due to the increase in size there is some m ass effect upon the stomach and the liver capsule. Consider evaluation for surg ical removal. 2. Gallbladder not identified and may have been removed or contracted. There i s no inflammation in the RIGHT upper quadrant. 3. Stable LEFT adrenal nodule 10 x 16 mm. 4. Mild hepatic steatosis.
[2025-02-13] MEDS: gadobenate dimeglumine 20 mL vial IV (11:36)
[2025-02-13 13:08] LABS: Alanine Aminotransferase 21 U/L (0-33); Albumin Level 4.1 g/dL (3.5-5.2); Alkaline Phosphatase 94 U/L (35-105); Anion Gap 12.5 (5-19); Aspartate Amino Transferase 18 U/L (0-32); Blood Urea Nitrogen 16 mg/dL (6-20); Calcium 9.4 mg/dL (8.5-10.5); Carbon Dioxide 29 mmol/L (22-29); Chloride 101 mmol/L (98-107); Globulin 2.8 g/dL (1.3-4.6); Glucose 84 mg/dL (65-115); Osmolality Calculated 286 mOsm/kg (285-295); Potassium 4.5 mmol/L (3.5-5.1); Sodium 138 mmol/L (136-145); Total Protein 6.9 g/dL (6.6-8.7)
[2025-02-13 13:40] LABS: Tumor Marker Alpha Fetoprotein 6.3 ng/mL (0-8.3)
== END 2025-02-13 10:42 | disposition home or self-care (01) ==
LOC: RAD 10:46
PROVIDERS: PCP Nurse Practitioner Family; Visit Provider Nurse Practitioner
DX: R16.0 Hepatomegaly, not elsewhere classified (principal)
CPT/HCPCS: 36415; 74183; 80053; 82105

== ENCOUNTER 2025-03-23 09:43 | Outpatient (CLI) | payer MEDICARE, SELFPAY ==
--- NOTE | 2025-03-23 09:47 | MM_ITS ---
WS: [id number] Bilateral screening 3D tomosynthesis digital mammogram, 03/23/2025 9:54 AM Clinical Data: SCREENING Comparison: 03/20/2024, 03/09/2023, 02/27/2022, 02/25/2021, 02/23/2020, 07/07/2019, 05/20/2019, 07/29/2013, 10/09/2011, 09/27/2011, 08/06/2000. Findings: No spiculated masses or clustered calcifications are seen. There are no secondary signs of carcinoma. There are small calcifications in the central portion of the right breast unchanged. MM/MM scr BI tomosynthesis [id number] Impression: Negative bilateral mammogram unchanged. Recommend annual screening mammograms. BIRADS: 1 - Negative. FOLLOW UP: 1 Year Follow-up DENSITY: The breasts are almost entirely fatty. The CAD warehouse checker was used
== END 2025-03-23 09:44 | disposition home or self-care (01) ==
LOC: RAD 09:44
PROVIDERS: PCP Nurse Practitioner Family; Visit Provider Nurse Practitioner Family
DX: Z12.31 Encounter for screening mammogram for malignant neoplasm of breast (principal); R92.313 Mammographic fatty tissue density, bilateral breasts; R92.1 Mammographic calcification found on diagnostic imaging of breast
CPT/HCPCS: 77063; 77067

== ENCOUNTER → 2025-03-24 10:37 | Outpatient (BNVA) | payer MEDICARE, SELFPAY | PROVIDERS: PCP Nurse Practitioner Family; Visit Provider Nurse Practitioner Family | DX: D22.39 Melanocytic nevi of other parts of face (principal); L73.8 Other specified follicular disorders; L70.8 Other acne; F42.4 Excoriation (skin-picking) disorder; L82.1 Other seborrheic keratosis; D48.5 Neoplasm of uncertain behavior of skin | CPT/HCPCS: 11102; 99203 ==

== ENCOUNTER → 2025-05-08 10:22 | Outpatient (BNVA) | payer MEDICARE, SELFPAY | PROVIDERS: PCP Nurse Practitioner Family; Referring Provider Nurse Practitioner Family; Visit Provider Internal Medicine | DX: R05.3 Chronic cough (principal); R91.8 Other nonspecific abnormal finding of lung field; Z99.89 Dependence on other enabling machines and devices; Z91.198 Patient's noncompliance with other medical treatment and regimen for other reason; F17.200 Nicotine dependence, unspecified, uncomplicated; J44.9 Chronic obstructive pulmonary disease, unspecified | CPT/HCPCS: 99204; Q3014 ==